=== PATIENT | female | born 1970 | race African-American/Black ===

== ENCOUNTER 2021-10-26 11:52 | Emergency (ER) | payer OTHER ==
[~2021-10-26] VITALS: Ht 1645.9 cm; Wt 93.0 kg
[2021-10-26] MEDS ORDERED: NALOXONE HCL 0.4 MG/ML AMPUL IV ONE ×2 (12:00→13:00)
[2021-10-26] MEDS ORDERED: IV NORMAL SALINE 1000 ML BAG IV ONE ×2 (12:00→16:00)
[2021-10-26] MEDS ORDERED: NALOXONE HCL 0.4 MG/ML AMPUL ONE (12:27)
[2021-10-26] MEDS ORDERED: NALOXONE 2 MG/2 ML SYRINGE ONE (12:30)
[2021-10-26 12:34] LABS: HEMATOCRIT 27.5 % (31.2-41.9); MEAN CORPUSCULAR VOLUME 77.5 fL (75.5-95.3); PLATELET COUNT (AUTO) 209 K/uL (179-408)
[2021-10-26 12:39] LABS: ALANINE AMINOTRANSFERASE 20 U/L (14-59); ALKALINE PHOSPHATASE 73 U/L (50-136); ASPARTATE AMINOTRANSFERASE 24 U/L (15-37); BILIRUBIN,DIRECT 0.1 mg/dL (0.0-0.2); BILIRUBIN,TOTAL 0.2 mg/dL (0.2-1.0); CARBON DIOXIDE 24 mmol/L (21-32); CHLORIDE 104 mmol/L (98-107); CREATININE 0.6 mg/dL (0.6-1.3); GLUCOSE 103 mg/dL (74-106); POTASSIUM 3.2 mmol/L (3.5-5.1); TOTAL PROTEIN, SERUM 8.1 g/dL (6.4-8.2); UREA NITROGEN, BLOOD 8 mg/dL (7-18)
[2021-10-26 12:43] LABS: ACETAMINOPHEN < 2.0 ug/mL (10-30)
[2021-10-26 12:47] LABS: ETHANOL 421 MG/DL (0-0)
--- NOTE | 2021-10-26 12:50 | NUR ---
Pt out of ER for CT scan.
--- NOTE | 2021-10-26 13:02 | NUR ---
Back from Ct, continue w/ monitoring.
[2021-10-26 13:05] LABS: *BILIRUBIN,URIN NEGATIVE (NEGATIVE); *BLOOD, URINE NEGATIVE (NEGATIVE); *CLARITY,URINE CLEAR (CLEAR); *COLOR,URINE YELLOW (YELLOW); *KETONES,URINE NEGATIVE (NEGATIVE); *UROBILINOGEN,URINE 0.2 E.U./dl (NORMAL); LEUKOCYTE ESTERASE ,URINE NEGATIVE (NEGATIVE); NITRITE, URINE NEGATIVE (NEGATIVE); PH,URINE 5.5 (5.0-8.0); UGLUCOSE NEGATIVE (NEGATIVE)
[2021-10-26 13:14] LABS: *AMPHETAMINE, URINE NEGATIVE (NEGATIVE); *CANNABINOID, URINE NEGATIVE (NEGATIVE); *COCCAINE, URINE NEGATIVE (NEGATIVE); *OPIATE, URINE NEGATIVE (NEGATIVE); *PHENCYCLIDINE SCREEN,URINE NEGATIVE (NEGATIVE)
--- NOTE | 2021-10-26 23:02 | NUR ---
pt left before recieving discharge instructions.
[2021-10-27 00:53] VITALS: BP 123/85
== END 2021-10-27 00:54 | disposition home or self-care (01) ==
LOC: ER 11:53
DX: F10.129 Alcohol abuse with intoxication, unspecified (principal); D64.9 Anemia, unspecified; Z20.822 Contact with and (suspected) exposure to COVID-19
CPT/HCPCS: 36415; 70450; 80048; 80076; 80299; 80307; 80320; 81003; 85025; 87426; 93005; 96361; 96374; 99285; J2310 ×2; J7040 ×2; A4663; C1758; G0480